=== PATIENT | female | born 1975 | race Caucasian/White ===

== ENCOUNTER 2016-08-29 17:59 | Emergency (ER) | payer SELFPAY ==
[~2016-08-29] VITALS: Ht 180.3 cm; Wt 119.0 kg
[~2016-08-29 17:59] MED LIST: ALPRAZOLAM0.25 MG PO; EFFEXOR XR150 MG PO; HYDROCODON-ACE1 EAC7 PO; KEFLEX500 MG PO; KLONOPIN1 MG PO; MOTRIN800 MG PO; NORCO 5/3251 TABLET PO; NORCO 7.5/321 TABLET PO; PERCOCET 5/31 TABLET PO; REMERON15 M2 PO; ZOFRAN4 MG PO
[2016-08-29 19:13] LABS: ADD MIUA? YES; BILIRUBIN NEGATIVE; BLOOD SMALL; GLUCOSE (STRIP) NEGATIVE; KETONES NEGATIVE; LEUKOCYTES NEGATIVE; NITRITE POSITIVE; PROTEIN (STRIP) 30; SPECIFIC GRAVITY 1.032 (1.000-1.030); UROBILINOGEN 0.2 MG/DL (0.2-1.0)
[2016-08-29 19:26] LABS: BACTERIA 3+ /HPF; EPITHELIAL CELLS RARE /HPF; MUCUS 4+ /LPF; RED BLOOD CELLS 0-5 /HPF (0-5); UCUL ADDED? NO; WHITE BLOOD CELLS 0-5 /HPF (0-5)
[2016-08-29 20:00] LABS: COLOR YELLOW ((YELLOW))
[2016-08-29] MEDS ORDERED: BACTRIM,SEPT1 TABLET PO (21:49)
[2016-08-29] MEDS ORDERED: PERCOCET 5/31 TABLET PO (21:49)
[2016-08-29 21:58] VITALS: BP 119/87
== END 2016-08-29 21:58 | disposition home or self-care (01) ==
LOC: EME 17:59
PROVIDERS: Physician Assistant
DX: N39.0 Urinary tract infection, site not specified (principal); M54.5 Low back pain; F17.200 Nicotine dependence, unspecified, uncomplicated
CPT/HCPCS: 74176; 81003; 87077; 87086; 87186; 99281; 99284; J1885; J3010